=== PATIENT | female | born 1985 | race Caucasian/White ===

== ENCOUNTER → 2024-03-02 | Outpatient (CLI) | payer OTHER ==
[~2024-03-02] MED LIST: AMOX875 PO; CYCL10 PO; HYDACE5 PO; IBUP200; IBUP400 PO; IBUP800 PO; Multivitamin1 EAC1 PO; NAPR500 PO; OXYACE5T PO; PRED20 PO; PROM12.5S PO; RXCYCL10 PO; RXHYDACE PO; RXTRAM50 PO; TRAM50 PO; [UNRECOGNIZED DRUG - OTHER]
== END ==
LOC: LAB SHORT 16:34 → LAB 16:34
PROVIDERS: Family Medicine
DX: Z01.419 Encounter for gynecological examination (general) (routine) without abnormal findings (principal)
CPT/HCPCS: 87070; 87205; G0123